=== PATIENT | female | born 1970 | race Two or more races ===

== ENCOUNTER → 2019-11-14 08:36 | Outpatient (CLI) | payer OTHER | END | disposition home or self-care (01) | LOC: RAD 08:36 | PROVIDERS: ATTEND Podiatrist | DX: M72.2 Plantar fascial fibromatosis (principal); M79.671 Pain in right foot ==

== ENCOUNTER 2023-08-08 16:28 | Outpatient (CLI) | payer OTHER | END 2023-08-08 16:39 | disposition home or self-care (01) | LOC: RAD 16:28 | PROVIDERS: ATTEND Orthopaedic Surgery | DX: R07.89 Other chest pain (principal) ==